=== PATIENT | female | born 1965 | race Caucasian/White ===

== ENCOUNTER 2022-10-06 18:23 | Inpatient (IN) | payer OTHER ==
[~2022-10-06] VITALS: Ht 152.4 cm; Wt 45.4 kg
[2022-10-06 20:23] LABS: RDW Coefficient Variation 12.2 % (11.7-14.2)
[2022-10-06 20:31] LABS: BASOPHILS ABSOLUTE AUTO 0.06 K/mm3 (0.00-0.23); BASOPHILS PERCENT AUTO 0 % (0-2); EOSINOPHILS ABSOLUTE AUTO 0.21 K/mm3 (0.00-0.68); EOSINOPHILS PERCENT AUTO 1 % (0-6); Hematocrit 45.8 % (33.0-51.0); Hemoglobin 15.9 g/dL (11.5-16.0); IMMATURE GRAN ABSOLUTE AUTO 0.14 K/mm3 (0.00-0.10); IMMATURE GRAN PERCENT AUTO 1 % (0-1); LYMPHOCYTES ABSOLUTE AUTO 1.51 K/mm3 (0.84-5.20); LYMPHOCYTES PERCENT AUTO 10 % (21-46); MONOCYTES PERCENT AUTO 6 % (4-13); Mean Corpuscular HGB 29.9 pg (26.0-34.0); Mean Corpuscular HGB Conc 34.7 g/dL (31.5-36.5); Mean Corpuscular Volume 86 fL (80-100); NEUTROPHILS ABSOLUTE AUTO 11.87 K/mm3 (1.96-9.15); NEUTROPHILS PERCENT AUTO 81 % (41-73); RDW Standard Deviation 38.9 fL (35.1-46.3); Red Blood Cell Count 5.31 M/mm3 (3.80-5.20); White Blood Cell Count 14.69 K/mm3 (4.00-11.30)
[2022-10-06 20:34] LABS: Alanine Aminotransfer (ALT/SGP 47 U/L (12-78); Albumin/Globulin Ratio 1.1 (0.8-1.8); Alk Phos 99 U/L (50-136); Anion Gap 4 mmol/L (6-16); Aspartate Aminotrans (AST/SGOT 76 U/L (12-37); Bilirubin, Total 0.8 mg/dL (0.1-1.0); Blood Urea Nitrogen 19 mg/dL (8-24); Bun/Creatinine Ratio 32.3 (12.0-20.0); CO2, Blood 26 mmol/L (21-32); Calcium, Blood 9.3 mg/dL (8.5-10.1); Chloride, Blood 106 mmol/L (98-108); Creatinine, Blood 0.59 mg/dL (0.40-1.00); Globulin, Blood 3.7 g/dL (2.2-4.0); Glomerular Filtration Rate 104 (60-); Glucose, Blood 93 mg/dL (70-99); Potassium, Blood 3.5 mmol/L (3.5-5.5); Sodium, Blood 136 mmol/L (136-145); Total Protein, Blood 7.7 g/dL (6.4-8.2)
[2022-10-07 00:06] LABS: Ethanol (Alcohol), Blood, Med <3 mg/dL
--- NOTE | 2022-10-07 04:40 | NUR ---
PT ARRIVED TO THE FLOOR AT APPROX 2215 ON 10/06/2022- A/O X4 AND W/ DELAYED RESPONSES. L ARM AND L LEG BOTH W/ SPLINTS- GIANNA WRAPS C/D/I, PULSES 2+. BRUISE TO R EYE. IV IN L EJ, FLUSED AND STARTED LR AT 125ML/HR PER ORDERS. PT REPORTS NO PAIN AT THIS TIME. VITALS TAKEN. THORAVENT CHEST TUBE TO L CHESTWALL- HOOKED TO LOW CONT SUCTION. PULSE OX PLACED ON PT, READING 20'S-30'S HR. SPOKE W/ DR HAMILTON AND RECIEVED HOSPITALIST CONSULT. TELE MONITORING PLACED ON PT- REPORT OF SR W/ PVCS IN THE 60'S. SOON AFTER EXPLOSIVE OPERATOR FUSE REPORTS TRIGEMENY. EKG ORDER RECIEVED, EKG DONE. HOSPITALIST TO BEDSIDE TO ASSESS PT AND CHEST TUBE, XRAY FOR PLACEMENT VERIFICATION ORDERED. POTASSIUM ORDERED BY HOSPITALIST AND STARTED ONCE ORDER VERIFIED BY PHARMACY. NO EVENTS OF TRIGEMENY REPORTED FROM EXPLOSIVE OPERATOR FUSE SINCE POTASSIUM GIVEN. HOSPITALIST VERIFIED THAT CHEST TUBE WAS NO LONGER FUNCTIONING CORRECTLY AND HE WOULD PLACE A NEW CHEST TUBE. PT MENTATION DECREASE, STILL RESPONSIVE BUT SOMNULENT AND ONLY ABLE TO STAY AWAKE FOR SECONDS AT A TIME. HEAD CT ORDERED AT THIS TIME. NEW CHEST TUBE INSERTED AT BEDSIDE BY HOSPITALIST AND ICU PCAS. XRAY AT BEDSIDE TO VERIFY PLACEMENT- LOW CONTINUOUS SUCTION. PT THEN TAKEN FOR CT SCAN, AWAITING RESULTS. PT CURRENTLY RUNNING SINUS CATY AT 50-60BPM, RESTING COMFORTABLY.
[2022-10-07 04:41] LABS: BASOPHILS ABSOLUTE AUTO 0.03 K/mm3 (0.00-0.23); BASOPHILS PERCENT AUTO 1 % (0-2); EOSINOPHILS ABSOLUTE AUTO 0.14 K/mm3 (0.00-0.68); EOSINOPHILS PERCENT AUTO 2 % (0-6); Hematocrit 40.9 % (33.0-51.0); Hemoglobin 13.9 g/dL (11.5-16.0); IMMATURE GRAN ABSOLUTE AUTO 0.02 K/mm3 (0.00-0.10); IMMATURE GRAN PERCENT AUTO 0 % (0-1); LYMPHOCYTES ABSOLUTE AUTO 1.31 K/mm3 (0.84-5.20); LYMPHOCYTES PERCENT AUTO 20 % (21-46); MONOCYTES ABSOLUTE AUTO 0.43 K/mm3 (0.16-1.47); MONOCYTES PERCENT AUTO 7 % (4-13); Mean Corpuscular HGB 29.8 pg (26.0-34.0); Mean Corpuscular Volume 88 fL (80-100); NEUTROPHILS ABSOLUTE AUTO 4.73 K/mm3 (1.96-9.15); NEUTROPHILS PERCENT AUTO 71 % (41-73); RDW Coefficient Variation 12.2 % (11.7-14.2); RDW Standard Deviation 39.2 fL (35.1-46.3); Red Blood Cell Count 4.67 M/mm3 (3.80-5.20); White Blood Cell Count 6.66 K/mm3 (4.00-11.30)
[2022-10-07 05:09] LABS: Bun/Creatinine Ratio 35.1 (12.0-20.0); Calcium, Blood 8.6 mg/dL (8.5-10.1); Creatinine, Blood 0.54 mg/dL (0.40-1.00); Potassium, Blood 4.3 mmol/L (3.5-5.5)
[2022-10-07 05:54] LABS: Mean Platelet Volume 12.2 fL (9.1-12.4)
[2022-10-07 07:29] LABS: U Amphetamine Screen DETECTED; U Barbituate Screen Not Detected; U Benzodiazapine Screen Not Detected; U Buprenorphine Screen Not Detected; U Cannabinoids Screen Not Detected; U Cocaine Screen Not Detected; U Methadone Screen Not Detected; U Methamphetamine Screen DETECTED; U Opiates Screen Not Detected; U Oxycodone Screen Not Detected; U Phencyclidine Screen Not Detected; U Propoxyphene Screen Not Detected
[2022-10-07 08:55] LABS: Platelet Count 143 K/mm3 (150-400)
--- NOTE | 2022-10-07 15:04 | NUR ---
PT HAS BEEN RESTING COMFORTABLY T/O SHIFT. AWAKENS EASILY TO VERBAL STIMULI BUT FALLS BACK ASLEEP QUICKLY. CT TO SX, NO C/O SOB OR CP. DOES C/O PAIN AT INSERTION SITE BUT STATES TOLERABLE.
--- NOTE | 2022-10-07 15:39 | NUR ---
CURTAIN CLEANER TO ROOM FOR CONSULT, DRESSING FOR CT CHANGED AND PLACED TO WATER SEAL AT APROX 1514.
--- NOTE | 2022-10-07 18:43 | NUR ---
PT CALLED C/O INCREASED CP AND "BUBBLING WHEN I TALK". PT O2 SAT NOTED TO BE 88% ON RA, PREVIOUSLY HAS BEEN ABOVE 90%. DR BLACK CALLED, ORDER TO PLACE PT BACK TO SX. SX ON AT 184
--- NOTE | 2022-10-07 19:13 | NUR ---
SHIFT SUMMARY PT HAS SHOWN IMPROVEMENT SINCE RE-STARTING CT TO SX. DECREASED CP AND O2 SAT 93% ON RA. ORTHO CONSULTED. PLAN FOR OR TOMORROW, NPO MIDNIGHT. PAIN HAS BEEN WELL MANAGED.
--- NOTE | 2022-10-07 21:29 | NUR ---
2119 PT REPORTS INCREASE IN PAIN AT CHEST TUBE INSERTION SITE. SITE ASSESSED, DRESSING INTACT, SS DRAINAGE NOTED. PT DENIES SOB, BUT REPORTS ITS DIFFICULT TO TAKE A FULL BREATH. DIMINISHED T/O ON THE L LUNG ALANIZ, BUT AIR MOVEMENT HEARD T/O. PT EDUCATED TO CALL ABOUT ANY FURTHER CHANGES, PLAN TO CONTINUE MONITORING
--- NOTE | 2022-10-07 23:01 | NUR ---
RESPIRATORY PT SATTING 84% ON RA WHEN ASLEEP, AWOKE PT AND PERFORMED A RESPIRATORY ASSESSMENT. NO ACUTE CHANGES NOTED, PT DENIES INCREASE IN SOB OR PAIN. SATS CAME UP TO 95% ON RA. PT PLACED ON 2L O2 TO PREVENT SATS FROM DROPPING. DRESSING ON CT INSERTION SITE REINFORCED WITH TEGADERM AND GAUZE
--- NOTE | 2022-10-08 02:03 | NUR ---
OXYGEN TITRATION PT TITRATED TO 1L VIA NC, SATS >94% WHILE SLEEPING
--- NOTE | 2022-10-08 04:02 | NUR ---
POD1 FOR CHEST TUBE PLACEMENT. GAUZE UNDER DRESSING SATURATED WITH BLOOD, REINFORCED WITH GAUZE AND TEGADERM. C/T REMAINS ON CONTINUOUS SUCTION. SOME TIDLING NOTED IN WATER CHAMBER WHEN PT EXHALES. PT REMAINS ON 1L O2 VIA NC WHILE SLEEPING, SATS ARE >94%. NO CREPITOUS NOTED. SENSATION AND CIRCULATION REMAIN INTACT IN LUE AND LLE. VSS, TELE READS SR 69. PT HAS BEEN NPO SINCE 0000 IN ANTICIPATION FOR THE OR TODAY. PT SLEPT WELL T/O THE NIGHT. MEDICATED FOR PAIN ONCE WITH NORCO. PT VOIDED INTO BEDPAN W/O DIFFICULTY, URINE WAS DARK YELLOW. THE PATIENT IS CURRENTLY SLEEPING, IN NO DISTRESS, CALL LIGHT IN REACH.
--- NOTE | 2022-10-08 05:52 | NUR ---
TELE TELE CALLED TO REPORT AT 0257AM THE PATIENT HAD A 7.7 SECOND RUN OF SVT.
[2022-10-08 07:59] LABS: Bun/Creatinine Ratio 27.6 (12.0-20.0); Calcium, Blood 8.5 mg/dL (8.5-10.1); Creatinine, Blood 0.51 mg/dL (0.40-1.00); Magnesium, Blood 1.7 mg/dL (1.6-2.4); Phosphorus, Blood 2.6 mg/dL (2.5-4.9); Potassium, Blood 3.9 mmol/L (3.5-5.5)
--- NOTE | 2022-10-08 15:06 | NUR ---
THE PATIENT WAS BROUGHT TO DAY SURGERY FOR HER PROCEDURE.
--- NOTE | 2022-10-08 18:42 | NUR ---
SHIFT SUMMARY PT POD 0 ORIF OF L ANKLE. PT ARRIVED BACK TO UNIT FROM OR AT APROX 1800. GIANNA WRAP W/SPLINT IN PLACE. CAP REFILL BRISK ON TOES. BLOCK IN PLACE SO PT HAS NO C/O PAIN, IS ABLE TO WIGGLE L GREAT TOE. CT TO SX, PT DENIES SOB, NPO INCREASED WOB. O2 SAT GREATER THAN 90% ON RA. CHOWDHURY PATENT, DRAINAING CLEAR YELLOW URINE.
--- NOTE | 2022-10-09 04:12 | NUR ---
POD1 ORIF OF THE LEFT ANKLE. CIRCULATION IS INTACT IN LLE, PT REPORTS NO SENSATION D/T SCIATIC NERVE BLOCK. VSS, TELE READS SR 56. PT REMAINED ON 1L O2 T/O THE NIGHT TO KEEP SATS >90%. PT HAS REPORTED PAIN RELATED TO C/T INSERTION SITE T/O THE NIGHT. PLEURAVAC HAS REMAINED ON CONTINUOUS SUCTION T/O THE NIGHT, OCCASIONAL TIDLING IN RESERVOIR NOTED. GAUZE AND TEGADERM REINFORCED AROUND C/T DRESSING. SENSATION AND CIRCULATION INTACT IN LUE. PT SLEPT WELL T/O THE NIGHT. TOLLERATED MINIMAL PO INTAKE T/O THE NIGHT W/O N/V. CHOWDHURY IN PLACE, DRAINING TO GRAVITY, YELLOW URINE. PLAN FOR PT TO WORK WITH PT/OT. THE PATIENT IS CURRENTLY SLEEPING, IN NO DISTRESS, CALL LIGHT IN REACH
--- NOTE | 2022-10-09 16:35 | NUR ---
SHIFT SUMMARY: POD 1 LEFT ANKLE ORIF NO SIGNIFICANT CHANGES. PATIENT IS A&OX4. CHEST TUBE IS ON WATER SEAL AND HER SATURATIONS HAVE STAYED >90% ACCORDING TO CONTINUOUS PULSE OX. DENIES SOB OR CHEST PAIN. PATIENT REPORTS MOST DISCOMFORT FROM CHEST TUBE INCISION SITE BUT IS MANAGED WITH ORAL NORCO. HER LEFT ARM CAST AND LEFT LEG CAST ARE C/D/I. SHE IS A SBA WITH ANDREAS WALKER AND GAIT BELT. SHE IS VOIDING AND TOLERATING SMALL AMOUNTS OF PO INTAKE. PATIENT HAS BEEN SITTING UP IN THE CHAIR MAJORITY OF THE SHIFT BUT IS NOW BACK IN BED. CALLS APPROPRIATELY. CALL LIGHT WITHIN REACH. THE PLAN IS ONCE HER CHEST TUBE CAN BE APPROPRIATELY D/C'D SHE CAN THEN BE DISCHARGED HOME WITH HOME HEALTH.
--- NOTE | 2022-10-09 18:00 | NUR ---
[employer] EMILIE CALLED THIS NURSE STATING FROM AROUND 1500 AND ON PATIENT IS CONSISTENTLY HAVING A TRIGEMINAL HEART RHYTHEM. THIS NURSE CHECKED ON THE PATIENT AND SHE DENIES SOB OR CHEST PAIN. CONTINUOUS BIOX SHOWS >90% OXYGEN SATS ON RA. SHE IS LAYING IN BED LAUGHING/TALKING WITH A FRIEND AT BEDSIDE. CALL LIGHT WITHIN REACH. THIS NURSE CALLED DR. PARRISH AND NOTIFIED HIM OF THE HEART RHYTHEM. HE REPORTED THAT HE WOULD PUT IN LAB ORDERS FOR TOMORROW AND FOLLOW UP AFTER GETTING THE RESULTS.
--- NOTE | 2022-10-10 00:46 | NUR ---
INCREASED NUMBESS AND TINGLING LEFT FOOT PT POD [address] VEGA. PT HAS BEEN REPORTING N/T IN TINGLING IN LEFT FOOT POST-OP PER PREVIOUS NURSING ASSESSMENT. PT ALSO RECEIVED NERVE BLOCK DURING SURGERY. PT REPORTS DURING SHIFT ASSESSMENT THAT FOOT IS MORE NUMB THAN BEFORE AND PT REPORTS DECREASED SENSATION. FOOT IS WARM TO TOUCH AND PT SLIGHTLY ABLE TO WIGGLE TOES. PT STATES THAT SHE WAS ABLE TO WIGGLE HER TOES MORE THAN SHE CAN NOW. SHE REPORTS SHE CAN FEEL PRESSURE WHEN Q TIP APPLIED TO TOES BUT NOT FULL SENSATION. LEFT ANKLE IS SPLINTED WITH GIANNA WRAP (POST OP DRESSING) , WITH SOME SWELLING. PT REPORTS THAT DR. SOLORIO DID NOT ROUND ON HER TODAY, REFERENCED CHART AND DID NOT SEE AN UPDATED PROGRESS NOTE FROM DR. SOLORIO. CALL PLACED TO ANS SERVICE TO NOTIFY DR. SOLORIO OF PT COMPLAINTS OF INCREASED N/T IN LEFT FOOT. CALL PLACED AT 2150 AND AGAIN AN HOUR LATER. DR SOLORIO DID NOT RETURN MY CALLS. B[employer] M[employer] AND CARRIAGE OPERATOR CHANELLE CHAUDHRY, AND NURSING DRIVER LICENSE TECHNICIAN IAM GONZALEZ NOTIFIED THAT SHE DID NOT RETURN MY CALL. 0046 AT THE TIME OF WRITING THIS NOTE, PT RESTING AT THIS TIME, WITHOUT DISTRESS. NOTIFIED PT THAT I ATTEMPTED TO REACH DR. SOLORIO AND DID NOT HEAR BACK. SHE REPORTS THAT HER FOOT IS DOING OK AT THIS TIME AND DENIES PAIN OR DISCOMFORT.
[2022-10-10 04:52] LABS: Hematocrit 37.4 % (33.0-51.0); Hemoglobin 12.8 g/dL (11.5-16.0); Mean Corpuscular HGB 29.9 pg (26.0-34.0); Mean Corpuscular HGB Conc 34.2 g/dL (31.5-36.5); Mean Corpuscular Volume 87 fL (80-100); RDW Coefficient Variation 12.6 % (11.7-14.2); Red Blood Cell Count 4.28 M/mm3 (3.80-5.20); White Blood Cell Count 7.12 K/mm3 (4.00-11.30)
[2022-10-10 05:24] LABS: Mean Platelet Volume 10.2 fL (9.1-12.4)
[2022-10-10 05:25] LABS: Platelet Count 140 K/mm3 (150-400)
--- NOTE | 2022-10-10 06:24 | NUR ---
SHIFT SUMMARY PT HAS RESTED MOST OF THE NIGHT. POD [address] OR[address] BY DR[address] SOLORIO. PT REPORTS INCREASED N/T IN LEFT FOOT, REPORTS DECREASED SENSATION IN FEET BUT REPORTS SHE CAN FEEL PRESSURE WHEN COTTON SWAB APPLIED TO FOOT. PT ABLE TO WIGGLE TOES MORE THIS AM THAN AT THE BEGINNING OF SHIFT, CAP REFILL DELAYED ABOUT 3 SECS, BUT PRESENT, SKIN IS WARM TO TOUCH. LEFT ARM IS SPLINTED FOR WRIST FRACTURE BY DR. VEGA, PT DENIES N/T IN LEFT HAND ABLE TO WIGGLE FINGERS, CAP FILL ABOUT 3 SECS. PT RESPIRATORY STATUS UNCHANGED OVERNIGHT, CHEST TUBE IN PLACE, WATER SEAL WITH NO ACUTE CHANGES. PER LATEST X-RAY PHEUMO IMPROVED. SATS WNL. RESP E/U. PT STILL REPORTING CHEST RIB PAIN, AND SOME PAIN AROUND CHEST TUBE SITE. NORCO HAS BEEN SUFFICENT FOR PAIN. TELE IN PLACE WITH RECENT CHANGES IN THE LAST 24 HOURS, TRIGEMY AND BIGEMINY. PT IS ASYMPTOMATIC. PER RECENT DAYSHIFT RN NOTE DR. PARRISH MADE AWARE OF TELE CHANGES AND WILL REVIEW AM LAB RESULTS TODAY. PT HAS BEEN UP WITH SBA USING HER HEMIWALKER. VITALS STABLE. CALL LIGHT WITHIN REACH.
[2022-10-10 06:29] LABS: Bun/Creatinine Ratio 33.5 (12.0-20.0); Calcium, Blood 8.3 mg/dL (8.5-10.1); Creatinine, Blood 0.54 mg/dL (0.40-1.00); Potassium, Blood 3.6 mmol/L (3.5-5.5)
--- NOTE | 2022-10-10 18:32 | NUR ---
SHIFT SUMMARY PT POD #2 FOR L ANKLE ORIF AND L WRIST SPINTING. DRESSINGS ARE CDI. CHEST TUBE DRESSING CHANGED PRN DUE TO MODERATE AMOUNT OF SS DRAINAGE. CHEST TUBE TO BE CLAMPED AT 0200 ON 10/11/22 AND CHEST X RAY IS TO FOLLOW. NERVE BLOCK WEARING OFF AND PT EXPERIENCING INCREASED SENSATION IN HER L FOOT AND PAIN. VSS.
--- NOTE | 2022-10-11 02:12 | NUR ---
CHEST TUBE CHEST TUBE CLAMPED BY PHOTOVOLTAIC INSTALLATION TECHNICIAN AT [address] BLACK ORDERS FOR REPEAT CHEST XRAY LATER THIS AM. PT RESTING COMFORTABLY AT THIS TIME. SATS WNL.
--- NOTE | 2022-10-11 05:57 | NUR ---
SHIFT SUMMARY PT HAS RESTED T/O THE NIGHT, MEDICATED AT THE BEGINNING OF THE SHIFT FOR LLE PAIN. NORCO HAS BEEN ADEQUATE FOR PAIN CONTROL. PT STILL REPORTING SOME NUMBNESS, BUT STATES THAT MORE FEELING IS RETURNING. PT ABLE TO WIGGLE TOES AND FOOT WARM TO TOUCH. LEFT ARM REMAINS IN SPLINT, HAND IS WARM AND DRY AND SHE DENIES N/T. PT HAS BEEN BREATHING EASILY ON RA, SATS WNL. CHEST TUBE CLAMPED AT 0200 PER ORDERS FOR CHEST X-RAY THIS AM, PT IS TOLERATING HAVING TUBE CLAMPED. PER MD NOTES, PLAN IS FOR POSSIBLE REMOVAL OF CHEST TUBE TODAY. PT A/OX4, CALLS APPROPRIATELY. VITALS STABLE. BED IN LOWEST POSITION, CALL LIGHT WITHIN REACH.
--- NOTE | 2022-10-11 18:37 | NUR ---
SHIFT SUMMARY PT POD #3 FOR ORIF TO L ANKLE AND SLINTING TO L WRIST. PT HAD CHEST TUBE REMOVED TODAY AND C/O PAIN AT THE SITE BUT NO DYSPNEA. PT IS NON WEIGHT BEARING ON HER L ANKLE AND IS ADHERENT TO PRECAUTIONS. VSS.
--- NOTE | 2022-10-12 06:21 | NUR ---
Assumed care at 1930. Patient slept comfortable through out the night. PRN pain med given x1. Lung sounds clear, no desaturations noted. Discontinued Chest tube site clean dry and intact. No acute safety concerns at this time.
--- NOTE | 2022-10-12 08:42 | NUR ---
TELE CALLED TO REPORT MULTIPLE EVENTS OF BIGEMENY AND TRIGEMENY. PT ASYMPTOMATIC, DENIES CP OR SOB. DR PARRISH IN ROOM, STATES HE IS AWARE AND NO NEW ORDERS AT THIS TIME.
[2022-10-12] MEDS ORDERED: Acetaminophen650 M1 PO (15:04)
[2022-10-12] MEDS ORDERED: DOCU100 PO (15:04)
[2022-10-12] MEDS ORDERED: MIRALAX11910 PO (15:05)
[2022-10-12] MEDS ORDERED: Norco 5-325 Ta1 EACH PO (15:05)
[2022-10-12] MEDS ORDERED: XARELTO20 MG PO (15:06)
--- NOTE | 2022-10-12 19:05 | NUR ---
DISCHARGE PT DISCHARGED HOME FROM UNIT AT APROX 1755. PT GIVEN WRITTEN AND VERBAL DC INSTRUCTIONS AND VERBALIZED UNDERSTANDING OF THESE INSTRUCTIONS. R IJ REMOVED, TOLERATED WELL. WALKER DELIVERED FROM [facility] TO FLOOR PRIOR TO DC. WRITTEN RX FOR PAIN MEDICATION GIVEN TO PT, COPY ON CHART
== END 2022-10-12 17:45 | disposition home or self-care (01) | DRG 492 ==
LOC: ER 18:23 → SURS 21:36
PROVIDERS: Internal Medicine; Orthopaedic Surgery; Student in an Organized Health Care Education/Training Program; Surgery; ADMIT Surgery
PROC: 0W9B30Z Drainage of Left Pleural Cavity with Drainage Device, Percutaneous Approach (ICD-10-PCS; 2022-10-06)
PROC: 2W3FX1Z Immobilization of Left Hand using Splint (ICD-10-PCS; 2022-10-06)
PROC: 2W3MX1Z Immobilization of Left Lower Extremity using Splint (ICD-10-PCS; 2022-10-06)
PROC: 0QSK04Z Reposition Left Fibula with Internal Fixation Device, Open Approach (ICD-10-PCS; 2022-10-08)
PROC: 0QSH04Z Reposition Left Tibia with Internal Fixation Device, Open Approach (ICD-10-PCS; principal; 2022-10-08 14:30)
DX: S82.845A Nondisplaced bimalleolar fracture of left lower leg, initial encounter for closed fracture (principal); G92.8 Other toxic encephalopathy; S22.42XA Multiple fractures of ribs, left side, initial encounter for closed fracture; S27.0XXA Traumatic pneumothorax, initial encounter; F17.210 Nicotine dependence, cigarettes, uncomplicated; S62.337A Displaced fracture of neck of fifth metacarpal bone, left hand, initial encounter for closed fracture; I49.3 Ventricular premature depolarization; Z28.21 Immunization not carried out because of patient refusal; Z98.890 Other specified postprocedural states; Z91.038 Other insect allergy status; Z91.030 Bee allergy status; T50.905A Adverse effect of unspecified drugs, medicaments and biological substances, initial encounter; Z91.048 Other nonmedicinal substance allergy status; V47.5XXA Car driver injured in collision with fixed or stationary object in traffic accident, initial encounter; Y92.410 Unspecified street and highway as the place of occurrence of the external cause
CPT/HCPCS: 29125; 29505; 32551; 36415; 70450; 71045; 71046; 71250; 72125; 73130; 73610; 73700; 74176; 76377; 80048; 80053; 83735; 84100; 84443; 85025; 85027; 85049; 93005; 93010; 93306; 94762; 96372-59; 97110; 97116; 97163; 97167; 97530; 97535; 99285-25; A9270; C1713; C1769; G0480; J0690; J1100; J1885; J2250; J2405; J2704; J3010; J3475; J3480; J7050; J7120